=== PATIENT | female | born 1955 | race Caucasian/White ===

== ENCOUNTER → 2017-07-20 | Outpatient (CLI) | payer OTHER ==
[~2017-07-20] MED LIST: ALEVE LIQUID G220 MG PO; ASPIR 8181 M1 PO; CIPRO; CIPRO500 MG PO; CRESTOR20 MG PO; CYMBALTA; CYMBALTA60 MG PO; Cipro PO; FLAGYL250 MG; FLAGYL500 MG PO; Flagyl PO; GLUCOPHAGE1000 MG PO; HUMALOG100 UNIT/1 SC; HYZAAR; HYZAAR 100-21 TABLET PO; IRON SUPPLEMENT PO; JANUMET 50/11 TABLET PO; JANUMET 50/51 TABLET PO; JANUVIA100 MG PO; JANUVIA25 M1 PO; LANTUS 3 M100 UNITS1 SC; LEVAQUIN750 MG PO; LOPRESSOR25 MG PO; LORTAB 10-3251 EACH PO; NITROFURANTOIN100 M3 PO; OMEPRAZOLE; PRILOSEC40 MG PO; TOUJEO SOL300 UNIT/1 SC; UROCIT-K15 MEQ PO; VANCOCIN HCL125 MG PO
== END | disposition home or self-care (01) ==
LOC: RAD 08:17
DX: I25.10 Atherosclerotic heart disease of native coronary artery without angina pectoris (principal); R91.1 Solitary pulmonary nodule; K44.9 Diaphragmatic hernia without obstruction or gangrene; R91.8 Other nonspecific abnormal finding of lung field; I49.3 Ventricular premature depolarization
CPT/HCPCS: 71275

== ENCOUNTER 2018-02-08 10:40 | Inpatient (IN) | payer OTHER ==
[~2018-02-08] VITALS: Ht 167.6 cm; Wt 100.9 kg
[~2018-02-08 10:40] MED LIST changes: -HUMALOG100 UNIT/1 SC; +NOVOLOG 10100 UNITS/ SC; +OMEPRAZOLE40 M1 PO; -PRILOSEC40 MG PO
[2018-02-08 11:53] LABS: BASOPHIL (%) 0.4 % (0-1); BASOPHIL COUNT 0.1 K/uL (0-0.1); EOSINOPHIL (%) 1.1 % (0-5); EOSINOPHIL COUNT 0.1 K/uL (0-0.3); HEMATOCRIT 34.9 % (36.0-46.0); HEMOGLOBIN 10.9 G/DL (11.9-15.5); IMMATURE GRANULOCYTE (%) 0.4 % (0.0-0.7); LYMPHOCYTE (%) 14.1 % (15-42); LYMPHOCYTE COUNT 1.7 K/uL (1.0-2.8); MCH 22.8 PG (29.0-34.0); MCHC 31.2 G/DL (30.0-36.0); MONOCYTE (%) 6.3 % (3-12); MONOCYTE COUNT 0.8 K/uL (0-0.8); NEUTROPHIL (%) 77.7 % (45-76); NEUTROPHIL COUNT 9.5 K/uL (1.8-6.4); PLATELET COUNT 543 K/uL (156-360); RBC DIS.WIDTH-CV 15.9 % (11.8-14.6); RBC DIS.WIDTH-SD 41.8 % (39-53); RED BLOOD COUNT 4.78 M/uL (3.80-5.20); WHITE BLOOD COUNT 12.3 K/uL (4.1-10.2)
[2018-02-08 11:56] LABS: ALBUMIN 4.4 g/dL (3.2-4.8); CHLORIDE 99 mEq/L (99-109); POTASSIUM 4.3 mEq/L (3.7-5.4); SODIUM 136 mEq/L (136-147)
[2018-02-08 11:58] LABS: GLUCOSE 132 mg/dL (70-99); TOTAL PROTEIN 8.4 g/dL (6.4-8.3)
[2018-02-08 12:00] LABS: TOTAL BILIRUBIN 0.5 mg/dL (0.0-1.0)
[2018-02-08 12:02] LABS: ALKALINE PHOSPHATASE 114 IU/L (3-129); CREATININE 1.3 mg/dL (0.6-1.3); GFR ESTIMATE (CALCULATED) 44 mL/min/
[2018-02-08 12:03] LABS: UREA NITROGEN (BUN) 20 mg/dL (9-23)
[2018-02-08 12:04] LABS: AST (GOT) 61 IU/L (2-34)
[2018-02-08 12:05] LABS: ALT (GPT) 50 IU/L (3-49); LIPASE 57 U/L (1.0-51.0)
[2018-02-08 12:39] LABS: APPEARANCE CLEAR ((CLEAR)); BILIRUBIN NEGATIVE; BLOOD NEGATIVE; COLOR YELLOW ((YELLOW)); GLUCOSE (STRIP) NEGATIVE; KETONES NEGATIVE; LEUKOCYTES TRACE; NITRITE NEGATIVE; PROTEIN (STRIP) NEGATIVE; SPECIFIC GRAVITY 1.019 (1.000-1.030); UROBILINOGEN 0.2 MG/DL (0.2-1.0)
[2018-02-08 12:52] LABS: BACTERIA NONE SEEN /HPF; EPITHELIAL CELLS RARE /HPF; HYALINE CASTS 0-5 /LPF; MUCUS TRACE /LPF; RED BLOOD CELLS NONE SEEN /HPF (0-5); WHITE BLOOD CELLS 0-5 /HPF (0-5)
[2018-02-08] MEDS ORDERED: FLAGYL500 MG PO (15:18)
[2018-02-08] MEDS ORDERED: CIPRO500 MG PO (15:18)
[2018-02-08] MEDS ORDERED: LANTUS 10100 UNITS/ SC (15:18)
[2018-02-08 20:22] VITALS: BP 139/76
[2018-02-09] VITALS (7 sets, daily range): BP systolic 111–141; BP diastolic 58–71
[2018-02-09 06:56] LABS: BASOPHIL (%) 0.8 % (0-1); BASOPHIL COUNT 0.1 K/uL (0-0.1); EOSINOPHIL (%) 3.3 % (0-5); EOSINOPHIL COUNT 0.2 K/uL (0-0.3); HEMATOCRIT 29.3 % (36.0-46.0); IMMATURE GRANULOCYTE (%) 0.3 % (0.0-0.7); LYMPHOCYTE (%) 30.2 % (15-42); LYMPHOCYTE COUNT 1.9 K/uL (1.0-2.8); MCH 22.5 PG (29.0-34.0); MCV 74.9 FL (83-99); MONOCYTE (%) 8.8 % (3-12); MONOCYTE COUNT 0.6 K/uL (0-0.8); NEUTROPHIL (%) 56.6 % (45-76); NEUTROPHIL COUNT 3.6 K/uL (1.8-6.4); PLATELET COUNT 397 K/uL (156-360); RBC DIS.WIDTH-CV 16.2 % (11.8-14.6); RBC DIS.WIDTH-SD 44.6 % (39-53); RED BLOOD COUNT 3.91 M/uL (3.80-5.20); WHITE BLOOD COUNT 6.4 K/uL (4.1-10.2)
[2018-02-09 06:57] LABS: HEMOGLOBIN 8.8 G/DL (11.9-15.5)
[2018-02-09 07:25] LABS: CHLORIDE 105 MEQ/L (99-109); CREATININE 1.1 MG/DL (0.6-1.3); GFR ESTIMATE (CALCULATED) 53 mL/min/; GLUCOSE 119 mg/dL (70-99); POTASSIUM 4.7 MEQ/L (3.7-5.4); SODIUM 140 MEQ/L (136-147); UREA NITROGEN (BUN) 13 mg/dL (9-23)
[2018-02-10 03:44] VITALS: BP 137/75
[2018-02-10 06:25] LABS: BASOPHIL (%) 0.7 % (0-1); EOSINOPHIL (%) 4.3 % (0-5); EOSINOPHIL COUNT 0.3 K/uL (0-0.3); HEMATOCRIT 29.2 % (36.0-46.0); HEMOGLOBIN 8.8 G/DL (11.9-15.5); IMMATURE GRANULOCYTE (%) 0.2 % (0.0-0.7); LYMPHOCYTE (%) 29.4 % (15-42); LYMPHOCYTE COUNT 1.7 K/uL (1.0-2.8); MCH 22.7 PG (29.0-34.0); MCHC 30.1 G/DL (30.0-36.0); MCV 75.3 FL (83-99); MONOCYTE (%) 7.5 % (3-12); MONOCYTE COUNT 0.4 K/uL (0-0.8); NEUTROPHIL (%) 57.9 % (45-76); NEUTROPHIL COUNT 3.3 K/uL (1.8-6.4); PLATELET COUNT 355 K/uL (156-360); RBC DIS.WIDTH-CV 16.3 % (11.8-14.6); RBC DIS.WIDTH-SD 44.4 % (39-53); RED BLOOD COUNT 3.88 M/uL (3.80-5.20); WHITE BLOOD COUNT 5.8 K/uL (4.1-10.2)
[2018-02-10 06:52] LABS: CHLORIDE 105 MEQ/L (99-109); GFR ESTIMATE (CALCULATED) > 59 mL/min/; GLUCOSE 108 mg/dL (70-99); POTASSIUM 4.2 MEQ/L (3.7-5.4); SODIUM 140 MEQ/L (136-147); UREA NITROGEN (BUN) 8 mg/dL (9-23)
[2018-02-10 08:01] VITALS: BP 133/61
[2018-02-10 15:46] VITALS: BP 165/63
[2018-02-10 23:02] VITALS: BP 124/64
[2018-02-11 06:47] VITALS: BP 133/64
[2018-02-11 07:41] LABS: BASOPHIL (%) 0.7 % (0-1); BASOPHIL COUNT 0.1 K/uL (0-0.1); EOSINOPHIL (%) 4.3 % (0-5); EOSINOPHIL COUNT 0.3 K/uL (0-0.3); HEMATOCRIT 32.7 % (36.0-46.0); HEMOGLOBIN 9.9 G/DL (11.9-15.5); IMMATURE GRANULOCYTE (%) 0.3 % (0.0-0.7); LYMPHOCYTE (%) 28.1 % (15-42); MCH 22.8 PG (29.0-34.0); MCHC 30.3 G/DL (30.0-36.0); MCV 75.2 FL (83-99); MONOCYTE (%) 7.7 % (3-12); MONOCYTE COUNT 0.6 K/uL (0-0.8); NEUTROPHIL (%) 58.9 % (45-76); NEUTROPHIL COUNT 4.2 K/uL (1.8-6.4); PLATELET COUNT 433 K/uL (156-360); RBC DIS.WIDTH-CV 16.3 % (11.8-14.6); RBC DIS.WIDTH-SD 44.5 % (39-53); RED BLOOD COUNT 4.35 M/uL (3.80-5.20); WHITE BLOOD COUNT 7.1 K/uL (4.1-10.2)
[2018-02-11 16:19] VITALS: BP 118/59
[2018-02-11 17:24] LABS: C DIFF TOXIN NEGATIVE (NEGATIVE)
[2018-02-11 23:45] VITALS: BP 143/74
[2018-02-12 07:20] VITALS: BP 123/73
[2018-02-12 15:30] VITALS: BP 144/63
[2018-02-12 23:08] VITALS: BP 138/60
[2018-02-13 07:00] VITALS: BP 140/71
[2018-02-13] MEDS ORDERED: FLAGYL500 MG PO (14:41)
[2018-02-14] MEDS ORDERED: NOVOLOG PE100 UNITS/ SC (09:57)
[2018-02-14] MEDS ORDERED: LANTUS 3 M100 UNITS1 SC (09:58)
== END 2018-02-13 15:20 | disposition home or self-care (01) | DRG 392 ==
LOC: EME 10:40 → 2EAST 16:05 → EDOF 16:05 → ENRESERV 16:17 → 2EAST 19:24
PROVIDERS: Emergency Medicine; Family Medicine
DX: K57.32 Diverticulitis of large intestine without perforation or abscess without bleeding (principal); E86.0 Dehydration; K76.0 Fatty (change of) liver, not elsewhere classified; I49.3 Ventricular premature depolarization; E11.9 Type 2 diabetes mellitus without complications; I10 Essential (primary) hypertension; E78.5 Hyperlipidemia, unspecified; F32.9 Major depressive disorder, single episode, unspecified; D64.9 Anemia, unspecified; K21.9 Gastro-esophageal reflux disease without esophagitis; K58.9 Irritable bowel syndrome, unspecified; L71.9 Rosacea, unspecified; M45.9 Ankylosing spondylitis of unspecified sites in spine; Z79.4 Long term (current) use of insulin
CPT/HCPCS: 71046; 74019; 74022; 74177; 80048; 80053; 81003; 82565; 82948; 83605; 83690; 84520; 85025; 86850; 86900; 86901; 86920; 87493; 94799; 99281; 99283; J2405; J2543; J2765; J3010; J7030; J7050

== ENCOUNTER 2018-02-14 20:46 | Inpatient (IN) | payer OTHER ==
[~2018-02-14] VITALS: Ht 170.2 cm; Wt 99.7 kg
[~2018-02-14 20:46] MED LIST changes: +LANTUS 10100 UNITS/ SC; +NOVOLOG PE100 UNITS/ SC
[2018-02-15 08:45] VITALS: BP 157/75
[2018-02-15 17:52] VITALS: BP 126/64
[2018-02-15 18:16] LABS: HEMATOCRIT 30.3 % (36.0-46.0); HEMOGLOBIN 9.1 G/DL (11.9-15.5); MCH 22.2 PG (29.0-34.0); MCV 73.9 FL (83-99); PLATELET COUNT 467 K/uL (156-360); RBC DIS.WIDTH-CV 16.3 % (11.8-14.6); RBC DIS.WIDTH-SD 43.6 % (39-53); WHITE BLOOD COUNT 13.2 K/uL (4.1-10.2)
[2018-02-16 00:24] VITALS: BP 135/66
[2018-02-16 04:31] VITALS: BP 134/68
[2018-02-16 06:10] LABS: HEMATOCRIT 30.4 % (36.0-46.0); MCH 22.5 PG (29.0-34.0); MCHC 29.6 G/DL (30.0-36.0); PLATELET COUNT 500 K/uL (156-360); RBC DIS.WIDTH-CV 16.6 % (11.8-14.6); RBC DIS.WIDTH-SD 46.2 % (39-53); WHITE BLOOD COUNT 11.7 K/uL (4.1-10.2)
[2018-02-16 06:43] LABS: CHLORIDE 103 MEQ/L (99-109); CREATININE 0.9 MG/DL (0.6-1.3); GFR ESTIMATE (CALCULATED) > 59 mL/min/; GLUCOSE 151 mg/dL (70-99); MAGNESIUM 1.5 mg/dl (1.3-2.7); POTASSIUM 4.2 MEQ/L (3.7-5.4); SODIUM 138 MEQ/L (136-147); UREA NITROGEN (BUN) 7 mg/dL (9-23)
[2018-02-16 09:46] VITALS: BP 107/54
[2018-02-16 12:49] VITALS: BP 123/62
[2018-02-16 16:30] VITALS: BP 153/71
[2018-02-16 19:00] VITALS: BP 134/65
[2018-02-17 01:22] VITALS: BP 162/82
[2018-02-17 04:09] VITALS: BP 133/62
[2018-02-17 07:00] VITALS: BP 141/71
[2018-02-17 11:00] VITALS: BP 136/74
[2018-02-17 15:26] VITALS: BP 139/67
[2018-02-17 20:19] VITALS: BP 128/60
[2018-02-18 00:21] VITALS: BP 151/71
[2018-02-18 07:30] VITALS: BP 165/77
[2018-02-18 10:57] VITALS: BP 161/77
[2018-02-18 12:48] LABS: BASOPHIL (%) 0.3 % (0-1); EOSINOPHIL (%) 3.2 % (0-5); EOSINOPHIL COUNT 0.3 K/uL (0-0.3); HEMATOCRIT 27.2 % (36.0-46.0); IMMATURE GRANULOCYTE (%) 0.4 % (0.0-0.7); LYMPHOCYTE (%) 17.7 % (15-42); LYMPHOCYTE COUNT 1.7 K/uL (1.0-2.8); MCH 21.8 PG (29.0-34.0); MCHC 29.4 G/DL (30.0-36.0); MCV 74.1 FL (83-99); MONOCYTE (%) 8.4 % (3-12); MONOCYTE COUNT 0.8 K/uL (0-0.8); NEUTROPHIL COUNT 6.6 K/uL (1.8-6.4); PLATELET COUNT 452 K/uL (156-360); RBC DIS.WIDTH-SD 43.3 % (39-53); RED BLOOD COUNT 3.67 M/uL (3.80-5.20); WHITE BLOOD COUNT 9.4 K/uL (4.1-10.2)
[2018-02-18 12:56] LABS: CHLORIDE 101 MEQ/L (99-109); CREATININE 0.8 MG/DL (0.6-1.3); GFR ESTIMATE (CALCULATED) > 59 mL/min/; GLUCOSE 129 mg/dL (70-99); SODIUM 139 MEQ/L (136-147); UREA NITROGEN (BUN) 5 mg/dL (9-23)
[2018-02-18 14:47] VITALS: BP 143/83
[2018-02-18 20:00] VITALS: BP 155/67
[2018-02-18 23:43] VITALS: BP 152/75
[2018-02-19 08:15] VITALS: BP 118/83
[2018-02-19 15:44] VITALS: BP 133/80
[2018-02-19 23:13] VITALS: BP 146/67
[2018-02-20 06:26] LABS: HEMATOCRIT 28.1 % (36.0-46.0); HEMOGLOBIN 8.4 G/DL (11.9-15.5); MCH 21.9 PG (29.0-34.0); MCHC 29.9 G/DL (30.0-36.0); MCV 73.4 FL (83-99); PLATELET COUNT 508 K/uL (156-360); RBC DIS.WIDTH-CV 15.9 % (11.8-14.6); RED BLOOD COUNT 3.83 M/uL (3.80-5.20); WHITE BLOOD COUNT 7.4 K/uL (4.1-10.2)
[2018-02-20 06:41] LABS: CHLORIDE 98 MEQ/L (99-109); GFR ESTIMATE (CALCULATED) > 59 mL/min/; GLUCOSE 139 mg/dL (70-99); MAGNESIUM 1.5 mg/dl (1.3-2.7); PHOSPHORUS 3.8 mg/dL (2.5-4.9); POTASSIUM 3.6 MEQ/L (3.7-5.4); SODIUM 139 MEQ/L (136-147); UREA NITROGEN (BUN) 6 mg/dL (9-23)
[2018-02-20 07:20] VITALS: BP 146/70
[2018-02-20] MEDS ORDERED: ENDOCET 5-3251 EACH PO (10:26)
== END 2018-02-20 12:25 | disposition home or self-care (01) | DRG 331 ==
LOC: ENRESERV 20:46 → 2SOUTH 02-15 07:30 → SDC 02-15 08:45 → EDSTATUS 02-15 14:54 → 2SOUTH 02-15 14:56 → ENRESERV 02-15 16:05 → 5EAST 02-15 17:29
PROVIDERS: Surgery; Thoracic Surgery (Cardiothoracic Vascular Surgery)
DX: K57.32 Diverticulitis of large intestine without perforation or abscess without bleeding (principal); E11.65 Type 2 diabetes mellitus with hyperglycemia; I10 Essential (primary) hypertension; K21.9 Gastro-esophageal reflux disease without esophagitis; D63.8 Anemia in other chronic diseases classified elsewhere; M45.9 Ankylosing spondylitis of unspecified sites in spine; F41.1 Generalized anxiety disorder; M19.90 Unspecified osteoarthritis, unspecified site; F32.9 Major depressive disorder, single episode, unspecified; I87.8 Other specified disorders of veins; I49.3 Ventricular premature depolarization; E66.9 Obesity, unspecified; E78.00 Pure hypercholesterolemia, unspecified; Z90.722 Acquired absence of ovaries, bilateral; Z90.710 Acquired absence of both cervix and uterus; Z87.440 Personal history of urinary (tract) infections; Z68.34 Body mass index [BMI] 34.0-34.9, adult; Z82.49 Family history of ischemic heart disease and other diseases of the circulatory system; Z80.52 Family history of malignant neoplasm of bladder
CPT/HCPCS: 71045; 80048; 82948; 83735; 84100; 85025; 85027; 88302; 88305; 88307; 94799; C1751; J0330; J1170; J1335; J1650; J1815; J2250; J2405; J2710; J3010; J3475; J7050; J7120; Q0175; S0020